=== PATIENT | female | born 1980 | race Caucasian/White ===

== ENCOUNTER 2022-07-09 19:12 | Emergency (ER) | payer BC, OTHER ==
[~2022-07-09] VITALS: Ht 175.3 cm; Wt 107.0 kg
[~2022-07-09 19:12] MED LIST: CARBAMAZEPINE200 MG PO; CLINDAMYCIN HC300 MG PO; COGENTIN1 MG/1 ML PO; DICYCLOMINE HCL20 MG PO; HYOSCYAMINE0.375 MG PO; LAMICTAL200 MG PO; LAMOTRIGINE200 MG PO; LATUDA40 MG PO; LATUDA80 MG PO; LYRICA75 MG PO; METRONIDAZOLE500 MG PO; RIFAMPIN300 MG PO; TRAZODONE HCL100 MG PO; TRAZODONE HCL50 MG PO; ULTRAM 50MG50 MG PO
[2022-07-09] MEDS ORDERED: SODIUM CHLORIDE 0.9% 1000ML 1,000 ML IV ONE (20:15)
[2022-07-09] MEDS ORDERED: ONDANSETRON HCL INJ 2MG/ML 2ML 2 MG/ML VIAL IV STA (20:21)
[2022-07-09 20:25] LABS: BASOPHILS # (AUTO) 0.1 (0.0-0.1); BASOPHILS % 0.5 % (0.0-1.0); EOSINOPHILS # (AUTO) 0.2 (0.0-0.4); EOSINOPHILS % 1.3 % (0.0-6.0); HEMATOCRIT 40.3 % (34.2-44.1); HEMOGLOBIN 12.9 g/dL (12.0-16.0); LYMPHOCYTES # (AUTO) 3.5 (1.0-3.2); LYMPHOCYTES % 27.7 % (18.0-39.1); MEAN CORPUSCULAR HEMOGLOBIN 29.7 pg (28-32); MEAN CORPUSCULAR VOLUME 92.9 fL (81-99); MONOCYTES # (AUTO) 0.6 (0.2-0.8); MONOCYTES % 4.5 % (4.4-11.3); NEUTROPHILS # (AUTO) 8.4 (2.1-6.9); NEUTROPHILS % 65.6 % (38.7-80.0); PLATELET COUNT 265 x10e3/uL (140-360); RED BLOOD COUNT 4.34 x10e6/uL (3.6-5.1); RED CELL DISTRIBUTION WIDTH 12.9 % (11.7-14.4)
[2022-07-09 20:41] LABS: CLARITY,URINE SL CLOUDY (CLEAR); COLOR,URINE YELLOW (YELLOW); KETONES,URINE 1+ (NEGATIVE); LEUKOCYTE ESTERASE ,URINE NEGATIVE (NEGATIVE); NITRITE,URINE NEGATIVE (NEGATIVE); PROTEIN,URINE DIPSTICK NEGATIVE (NEGATIVE); URINE UROBILINOGEN 0.2 mg/dL (0.2 - 1)
[2022-07-09 20:42] LABS: ALBUMIN/GLOBULIN RATIO 1.1 (0.8-2.0); ANION GAP 14.1 mmol/L (8-16); CALCIUM 9.4 mg/dL (8.4-10.2); CREATININE, SERUM 0.98 mg/dL (0.57-1.11); POTASSIUM 4.1 mmol/L (3.5-5.1)
[2022-07-09 20:49] LABS: AMORPHOUS SEDIMENT,URINE MODERATE (FEW); BACTERIA,URINE FEW /HPF; EPITHELIAL CELLS,URINE FEW /LPF
[2022-07-09] MEDS ORDERED: CEFDINIR300 MG PO (22:07)
[2022-07-09 22:23] VITALS: BP 113/63
== END 2022-07-09 22:26 | disposition home or self-care (01) ==
LOC: ER 19:16
DX: R50.9 Fever, unspecified (principal); J40 Bronchitis, not specified as acute or chronic; R05.9 Cough, unspecified; Z20.822 Contact with and (suspected) exposure to COVID-19
CPT/HCPCS: 36415; 71045; 80053; 81001; 85025; 99284; J2405; J7030; U0002

== ENCOUNTER 2023-08-15 19:13 | Emergency (ER) | payer BC ==
[~2023-08-15] VITALS: Ht 175.3 cm; Wt 108.9 kg
[~2023-08-15 19:13] MED LIST changes: +CEFDINIR300 MG PO
[2023-08-15 20:15] LABS: BASOPHILS % 0.4 % (0.0-1.0); EOSINOPHILS # (AUTO) 0.2 (0.0-0.4); EOSINOPHILS % 1.4 % (0.0-6.0); HEMATOCRIT 37.8 % (34.2-44.1); HEMOGLOBIN 12.2 g/dL (12.0-16.0); LYMPHOCYTES # (AUTO) 2.5 (1.0-3.2); LYMPHOCYTES % 23.5 % (18.0-39.1); MEAN CORPUSCULAR HGB CONC 32.3 g/dL (31-35); MEAN CORPUSCULAR VOLUME 93.1 fL (81-99); MONOCYTES # (AUTO) 0.5 (0.2-0.8); MONOCYTES % 4.5 % (4.4-11.3); NEUTROPHILS # (AUTO) 7.3 (2.1-6.9); NEUTROPHILS % 69.9 % (38.7-80.0); PLATELET COUNT 224 x10e3/uL (140-360); RED BLOOD COUNT 4.06 x10e6/uL (3.6-5.1); RED CELL DISTRIBUTION WIDTH 13.2 % (11.7-14.4)
[2023-08-15 20:26] LABS: BILIRUBIN,URINE NEGATIVE (NEGATIVE); CLARITY,URINE TURBID (CLEAR); COLOR,URINE YELLOW (YELLOW); GLUCOSE, URINE NEGATIVE (NEGATIVE); KETONES,URINE NEGATIVE (NEGATIVE); LEUKOCYTE ESTERASE ,URINE NEGATIVE (NEGATIVE); NITRITE,URINE NEGATIVE (NEGATIVE); PH,URINE 6 (5 - 7); PROTEIN,URINE DIPSTICK NEGATIVE (NEGATIVE); URINE UROBILINOGEN 0.2 mg/dL (0.2 - 1)
[2023-08-15 20:33] LABS: ALBUMIN 4.1 g/dL (3.5-5.0); ALBUMIN/GLOBULIN RATIO 1.6 (0.8-2.0); ANION GAP 12.9 mmol/L (8-16); BILIRUBIN,TOTAL 0.3 mg/dL (0.2-1.2); CREATININE, SERUM 0.71 mg/dL (0.57-1.11); POTASSIUM 3.9 mmol/L (3.5-5.1); TOTAL PROTEIN 6.7 g/dL (6.5-8.1)
[2023-08-15 20:39] LABS: INFLUENZAE A&B ANTIGEN (RAPID) NEGATIVE (NEGATIVE); STREPTOCOCCUS GRP A ANTIGEN NEGATIVE (NEGATIVE)
[2023-08-15 20:42] LABS: BACTERIA,URINE MODERATE /HPF; EPITHELIAL CELLS,URINE MODERATE /LPF; RBC,URINE 0-5 /HPF (0-5); WBC,URINE (MAN) 0-5 /HPF (0-5)
[2023-08-15 20:43] LABS: MUCUS,URINE MANY (RARE)
[2023-08-15 22:24] VITALS: BP 140/70; PULSE 88; RESP 17; TEMP 98.6; O2SAT 100
== END 2023-08-15 21:56 | disposition home or self-care (01) ==
LOC: ER 19:35
DX: R53.83 Other fatigue (principal); R51.9 Headache, unspecified; Z11.52 Encounter for screening for COVID-19
CPT/HCPCS: 36415; 80053; 81001; 83518; 85025; 87070; 87400; 99283; U0002